=== PATIENT | female | born 1975 | race Caucasian/White ===

== ENCOUNTER 2024-05-07 12:13 | Emergency (ER) | payer OTHER, SELFPAY ==
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
--- NOTE | ~2024-05-07 | XR_ITS ---
EXAMINATION: XR CHEST CLINICAL INFORMATION: Upper back pain COMPARISON: None available. TECHNIQUE: 2 views of the chest were obtained. FINDINGS: No significant abnormality is noted involving the heart, lungs, mediastinum, bony thorax or soft tissues. XR/XR chest 2V IMPRESSION: Unremarkable examination.
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
[2024-05-07 12:20] VITALS: BP 148/88; PULSE 79; O2SAT 97
[2024-05-07 12:22] VITALS: BP 145/87; PULSE 89; RESP 18; TEMP 36.6; O2SAT 97; BMI 25.8
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
[2024-05-07] MEDS: Ibuprofen 600 MG TABLET PO (12:27)
[2024-05-07] MEDS: Cyclobenzaprine HCl 10 MG TABLET PO (12:27)
--- NOTE | 2024-05-07 12:29 | PC.NURSE ---
pt medicated for 610 pain, awaiting radiology
[2024-05-07 16:47] VITALS: BP 119/75; PULSE 59; RESP 19; TEMP 36.6; O2SAT 100
== END 2024-05-07 16:53 | disposition home or self-care (01) ==
PROVIDERS: Emergency Provider Emergency Medicine
DX: S00.93XA Contusion of unspecified part of head, initial encounter (principal); S19.9XXA Unspecified injury of neck, initial encounter; M54.2 Cervicalgia; R51.9 Headache, unspecified; M54.50 Low back pain, unspecified; V03.90XA Pedestrian on foot injured in collision with car, pick-up truck or van, unspecified whether traffic or nontraffic accident, initial encounter; Y93.9 Activity, unspecified; Y92.481 Parking lot as the place of occurrence of the external cause; Y99.8 Other external cause status
CPT/HCPCS: 70450; 71046; 72125; 99283; 99284